=== PATIENT | female | born 1995 | race Caucasian/White ===

== ENCOUNTER 2017-07-18 10:23 | Emergency (ER) | payer OTHER, MEDICAID ==
[2017-07-18 10:32] VITALS: RESP 18; O2SAT 98
[2017-07-18] MEDS ORDERED: IBUPROFEN 600 MG TAB PO ONE (10:43)
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
[2017-07-18 13:54] VITALS: BP 115/58; PULSE 69; TEMP 98.4
== END 2017-07-18 13:51 | disposition home or self-care (01) ==
DX: S39.012A Strain of muscle, fascia and tendon of lower back, initial encounter (principal); V49.40XA Driver injured in collision with unspecified motor vehicles in traffic accident, initial encounter; Y92.410 Unspecified street and highway as the place of occurrence of the external cause; Y99.8 Other external cause status; Y93.89 Activity, other specified

== ENCOUNTER → 2018-05-23 | Outpatient (CLI) | payer OTHER | LOC: FIMAGING 13:52 | PROVIDERS: ATTEND Midwife | DX: T83.32XA Displacement of intrauterine contraceptive device, initial encounter (principal) ==